=== PATIENT | female | born 1955 | race Caucasian/White ===

== ENCOUNTER 2019-03-04 18:32 | Inpatient (IN) | payer OTHER, MEDICAID ==
[2019-03-04 19:13] LABS: ADD UMIC NO; UR ASCORBIC ACID NEGATIVE (NEGATIVE); UR BILIRUBIN (Dip) NEGATIVE (NEGATIVE); UR BLOOD (Dip) NEGATIVE (NEGATIVE); UR CLARITY CLEAR (CLEAR); UR COLOR STRAW (YELLOW); UR GLUCOSE (Dip) NEGATIVE (NEGATIVE); UR KETONES (Dip) NEGATIVE (NEGATIVE); UR LEUKOCYTE ESTERASE (Dip) NEGATIVE Leu/ul (NEGATIVE); UR NITRITE (Dip) NEGATIVE (NEGATIVE); UR SPECIFIC GRAVITY (Dip) 1.015 (1.003-1.030); UR TOTAL PROTEIN (Dip) NEGATIVE (NEGATIVE); UR UROBILINOGEN (Dip) NEGATIVE (NEGATIVE)
[2019-03-04 19:16] LABS: WHITE BLOOD COUNT 10.3 10^3/ul (4.8-10.8)
[2019-03-04 19:16] LABS: ADD MAN DIFF? NO; BASOPHIL # 0.1 10^3/ul (0.0-0.1); BASOPHILS % 0.6 % (0.0-2.0); EOSINOPHILS # 0.1 10^3/ul (0.0-0.5); EOSINOPHILS % 1.1 % (0.0-7.0); HEMATOCRIT 43.2 % (37.0-47.0); HEMOGLOBIN 14.2 g/dl (12.0-16.0); LYMPHOCYTES # 1.8 10^3/ul (0.8-2.9); LYMPHOCYTES % 17.8 % (15.0-51.0); MEAN CORPUSCULAR HEMOGLOBIN 28.4 pg (29.0-33.0); MEAN CORPUSCULAR HGB CONC 32.9 g/dl (32.0-37.0); MEAN CORPUSCULAR VOLUME 86.4 fl (82.0-101.0); MEAN PLATELET VOLUME 8.7 fl (7.4-10.4); MONOCYTE # 0.9 10^3/ul (0.3-0.9); MONOCYTES % 8.6 % (0.0-11.0); NEUTROPHIL # 7.4 10^3/ul (1.6-7.5); NEUTROPHILS % 71.7 % (39.0-77.0); PLATELET COUNT 426 10^3/UL (140-415); RED CELL DISTRIBUTION WIDTH 18.2 % (11.5-14.5)
[2019-03-04] MEDS: LORAZEPAM 1 MG TAB PO (19:18)
[2019-03-04] MEDS: SOD CHLORIDE 0.9% 1,000 ML IV (19:19)
[2019-03-04 19:32] LABS: ALANINE AMINOTRANSFERASE 18 IU/L (13-69); ALBUMIN 4.3 g/dl (3.3-4.9); ALBUMIN/GLOBULIN RATIO 1.07; ALKALINE PHOSPHATASE 89 IU/L (42-121); ANION GAP 12 (5-13); ASPARTATE AMINO TRANSFERASE 24 IU/L (15-46); BILIRUBIN,INDIRECT 0.3 mg/dl (0-1.1); BILIRUBIN,TOTAL 0.3 mg/dl (0.2-1.3); BLOOD UREA NITROGEN 26 mg/dl (7-20); CALCIUM 9.6 mg/dl (8.4-10.2); CARBON DIOXIDE 25 mmol/L (21-31); CHLORIDE 98 mmol/L (97-110); CREATININE 0.79 mg/dl (0.44-1.00); Estimated GFR > 60 mL/min (>60); GLUCOSE 62 mg/dl (70-220); LIPASE 35 U/L (23-300); POTASSIUM 3.9 mmol/L (3.5-5.1); SODIUM 135 mmol/L (135-144); TOTAL PROTEIN 8.3 g/dl (6.1-8.1)
[2019-03-04 19:44] LABS: TROPONIN-I < 0.012 ng/ml (0.000-0.120)
[2019-03-04] MEDS: FUROSEMIDE 40 MG INJ IV (20:28)
[2019-03-05] MEDS ORDERED: ONDANSETRON 4 MG INJ IV (03:00)
[2019-03-05] MEDS ORDERED: ALBUTEROL/IPRATROPIUM (NEB) 3 ML AMP HHN (03:00)
[2019-03-05] MEDS ORDERED: NACL 0.9% 3 ML SYG IV (03:00)
[2019-03-05] MEDS: SOD CHLORIDE 0.9% 1,000 ML IV ×2 (03:40→14:20)
[2019-03-05] MEDS: ACETAMINOPHEN 325 MG TAB PO (03:41)
[2019-03-05] MEDS: LORAZEPAM 2 MG INJ IV ×2 (03:54→22:24)
[2019-03-05 04:10] LABS: ADD MAN DIFF? NO
[2019-03-05 04:12] LABS: BASOPHIL # 0.1 10^3/ul (0.0-0.1); BASOPHILS % 0.5 % (0.0-2.0); EOSINOPHILS % 0.4 % (0.0-7.0); HEMATOCRIT 41.6 % (37.0-47.0); HEMOGLOBIN 13.8 g/dl (12.0-16.0); LYMPHOCYTES # 1.5 10^3/ul (0.8-2.9); LYMPHOCYTES % 13.1 % (15.0-51.0); MEAN CORPUSCULAR HEMOGLOBIN 28.9 pg (29.0-33.0); MEAN CORPUSCULAR HGB CONC 33.2 g/dl (32.0-37.0); MEAN PLATELET VOLUME 8.9 fl (7.4-10.4); MONOCYTE # 0.8 10^3/ul (0.3-0.9); NEUTROPHIL # 8.7 10^3/ul (1.6-7.5); NEUTROPHILS % 78.7 % (39.0-77.0); PLATELET COUNT 387 10^3/UL (140-415); RED BLOOD COUNT 4.78 10^6/ul (4.20-5.40); RED CELL DISTRIBUTION WIDTH 18.3 % (11.5-14.5)
[2019-03-05 04:24] LABS: HEMOGLOBIN A1C 7.8 % (0-5.9)
[2019-03-05 04:28] LABS: CREATINE KINASE 173 IU/L (23-200)
[2019-03-05 04:31] LABS: ALANINE AMINOTRANSFERASE 22 IU/L (13-69); ALBUMIN 3.7 g/dl (3.3-4.9); ALBUMIN/GLOBULIN RATIO 1.19; ALKALINE PHOSPHATASE 70 IU/L (42-121); ANION GAP 13 (5-13); ASPARTATE AMINO TRANSFERASE 24 IU/L (15-46); BILIRUBIN,INDIRECT 0.4 mg/dl (0-1.1); BILIRUBIN,TOTAL 0.4 mg/dl (0.2-1.3); BLOOD UREA NITROGEN 23 mg/dl (7-20); CALCIUM 9.2 mg/dl (8.4-10.2); CARBON DIOXIDE 27 mmol/L (21-31); CHLORIDE 100 mmol/L (97-110); CHOLESTEROL 112 mg/dl (100-200); CREATININE 0.64 mg/dl (0.44-1.00); Estimated GFR > 60 mL/min (>60); GLUCOSE 102 mg/dl (70-220); HDL CHOLESTEROL 54 mg/dl (35-98); LDL CHOLESTEROL,CALCULATED 45 mg/dl; MAGNESIUM 1.9 mg/dl (1.7-2.5); POTASSIUM 4.3 mmol/L (3.5-5.1); SODIUM 140 mmol/L (135-144); TOTAL PROTEIN 6.8 g/dl (6.1-8.1); TRIGLYCERIDES 67 mg/dl (0-149)
[2019-03-05] MEDS: LEVOFLOXACIN 500MG/D5W (PMX) 100 ML IVPB (05:01)
[2019-03-05] MEDS: HYDROmorphONE 1 MG/ML SYG IV (05:02)
[2019-03-05 05:09] LABS: CK INDEX 1.1; CK-MB 1.97 ng/ml (0.0-2.4); TROPONIN-I < 0.012 ng/ml (0.000-0.120)
[2019-03-05] MEDS: LISINOPRIL 20 MG TAB PO (09:05)
[2019-03-05] MEDS: HEPARIN 5,000 UNIT/1 ML VIAL SC ×2 (09:12→20:10)
[2019-03-05] MEDS: ASPIRIN 81 MG TAB PO (09:12)
[2019-03-05] MEDS: HYDROCODONE/APAP (5/325) TAB PO ×2 (10:48→20:04)
[2019-03-05] MEDS ORDERED: HYDROCODONE/APAP (5/325) TAB PO (11:00)
[2019-03-05 11:09] LABS: CREATINE KINASE 151 IU/L (23-200)
[2019-03-05 11:23] LABS: CK INDEX 1.1; CK-MB 1.65 ng/ml (0.0-2.4); TROPONIN-I < 0.012 ng/ml (0.000-0.120)
[2019-03-05] MEDS: morphine 2 MG INJ IV ×2 (12:02→15:58)
[2019-03-05 13:51] LABS: THYROID STIMULATING HORMONE 0.458 MIU/L (0.465-4.680)
[2019-03-05] MEDS: GABAPENTIN 100 MG CAP PO (22:39)
[2019-03-06] MEDS: morphine 2 MG INJ IV ×6 (00:53→21:37)
[2019-03-06] MEDS: HYDROCODONE/APAP (5/325) TAB PO (03:43)
[2019-03-06] MEDS: SOD CHLORIDE 0.9% 1,000 ML IV (03:51)
[2019-03-06] MEDS: LEVOFLOXACIN 500MG/D5W (PMX) 100 ML IVPB (05:40)
[2019-03-06 06:14] LABS: ADD MAN DIFF? NO; BASOPHIL # 0.1 10^3/ul (0.0-0.1); BASOPHILS % 0.6 % (0.0-2.0); EOSINOPHILS # 0.3 10^3/ul (0.0-0.5); EOSINOPHILS % 3.1 % (0.0-7.0); HEMATOCRIT 39.3 % (37.0-47.0); HEMOGLOBIN 12.7 g/dl (12.0-16.0); LYMPHOCYTES # 1.5 10^3/ul (0.8-2.9); LYMPHOCYTES % 18.6 % (15.0-51.0); MEAN CORPUSCULAR HEMOGLOBIN 28.9 pg (29.0-33.0); MEAN CORPUSCULAR HGB CONC 32.3 g/dl (32.0-37.0); MEAN CORPUSCULAR VOLUME 89.5 fl (82.0-101.0); MEAN PLATELET VOLUME 8.8 fl (7.4-10.4); MONOCYTE # 0.9 10^3/ul (0.3-0.9); MONOCYTES % 11.3 % (0.0-11.0); NEUTROPHIL # 5.4 10^3/ul (1.6-7.5); PLATELET COUNT 385 10^3/UL (140-415); RED BLOOD COUNT 4.39 10^6/ul (4.20-5.40); RED CELL DISTRIBUTION WIDTH 18.6 % (11.5-14.5)
[2019-03-06 06:14] LABS: WHITE BLOOD COUNT 8.2 10^3/ul (4.8-10.8)
[2019-03-06 06:29] LABS: ANION GAP 9 (5-13); BLOOD UREA NITROGEN 13 mg/dl (7-20); CALCIUM 8.8 mg/dl (8.4-10.2); CARBON DIOXIDE 28 mmol/L (21-31); CHLORIDE 101 mmol/L (97-110); CREATININE 0.51 mg/dl (0.44-1.00); Estimated GFR > 60 mL/min (>60); GLUCOSE 156 mg/dl (70-220); PHOSPHORUS 3.8 mg/dl (2.5-4.9); POTASSIUM 4.3 mmol/L (3.5-5.1); SODIUM 138 mmol/L (135-144)
[2019-03-06] MEDS: ASPIRIN 81 MG TAB PO (09:07)
[2019-03-06] MEDS: LISINOPRIL 20 MG TAB PO (09:07)
[2019-03-06] MEDS: HEPARIN 5,000 UNIT/1 ML VIAL SC ×2 (09:14→20:52)
[2019-03-06 12:18] LABS: FREE T4 (FREE THYROXINE) 1.25 ng/dl (0.78-2.44)
[2019-03-06 12:30] LABS: B-TYPE NATRIURETIC PEPTIDE 67 PG/ML (0-125)
[2019-03-06] MEDS ORDERED: DEXTROSE 50% 50 ML SYRINGE IV ×2 (12:30)
[2019-03-06] MEDS ORDERED: GLUCOSE GEL 15 GRAM TUBE PO ×2 (12:30)
[2019-03-06] MEDS ORDERED: GLUCAGON 1 MG INJ IM (12:30)
[2019-03-06] MEDS ORDERED: GLUCOSE GEL 15 GRAM TUBE BUCCAL (12:30)
[2019-03-06] MEDS: FUROSEMIDE 20 MG INJ IV (13:10)
[2019-03-06] MEDS: GABAPENTIN 300 MG CAP PO ×2 (13:10→20:52)
[2019-03-06] MEDS: NYSTATIN 30 GM POWDER BTL TOP ×2 (13:11→20:52)
[2019-03-06 13:22] LABS: THYROID STIMULATING HORMONE 0.746 MIU/L (0.465-4.680)
[2019-03-06] MEDS: ACETAMINOPHEN 325 MG TAB PO (16:33)
[2019-03-06] MEDS: INSULIN ASPART [NOVOLOG] 3 ML PEN SC ×3 (17:16→20:41)
[2019-03-06] MEDS: metFORMIN 500 MG TAB PO (17:17)
[2019-03-06] MEDS: INSULIN GLARGINE [LANTus] (100 UNITS/ML) SYG SC (20:51)
[2019-03-07] MEDS: HYDROCODONE/APAP (5/325) TAB PO ×3 (00:25→14:00)
[2019-03-07] MEDS: DICLOFENAC SODIUM 1% GEL 100 GM TUBE TP ×2 (01:01→08:15)
[2019-03-07] MEDS: morphine 2 MG INJ IV ×3 (01:46→09:46)
[2019-03-07] MEDS: DOCUSATE SODIUM 100 MG CAP PO (08:14)
[2019-03-07] MEDS: ASPIRIN 81 MG TAB PO (08:14)
[2019-03-07] MEDS: GABAPENTIN 300 MG CAP PO ×2 (08:14→12:29)
[2019-03-07] MEDS: metFORMIN 500 MG TAB PO (08:15)
[2019-03-07] MEDS: LISINOPRIL 20 MG TAB PO (08:15)
[2019-03-07] MEDS: FUROSEMIDE 20 MG INJ IV (08:16)
[2019-03-07] MEDS: AMLODIPINE 5 MG TAB PO (08:16)
[2019-03-07] MEDS: INSULIN ASPART [NOVOLOG] 3 ML PEN SC ×4 (08:17→12:26)
[2019-03-07] MEDS: HEPARIN 5,000 UNIT/1 ML VIAL SC (08:19)
[2019-03-07] MEDS: POLYETHYLENE GLYCOL 17 GM PACKET PO (08:20)
[2019-03-07 08:21] LABS: ADD MAN DIFF? NO
[2019-03-07 08:28] LABS: BASOPHILS % 0.5 % (0.0-2.0); EOSINOPHILS # 0.2 10^3/ul (0.0-0.5); EOSINOPHILS % 2.8 % (0.0-7.0); HEMATOCRIT 39.5 % (37.0-47.0); HEMOGLOBIN 12.5 g/dl (12.0-16.0); LYMPHOCYTES # 1.6 10^3/ul (0.8-2.9); LYMPHOCYTES % 19.4 % (15.0-51.0); MEAN CORPUSCULAR HEMOGLOBIN 28.4 pg (29.0-33.0); MEAN CORPUSCULAR HGB CONC 31.6 g/dl (32.0-37.0); MEAN CORPUSCULAR VOLUME 89.8 fl (82.0-101.0); MEAN PLATELET VOLUME 8.8 fl (7.4-10.4); MONOCYTE # 0.9 10^3/ul (0.3-0.9); MONOCYTES % 10.7 % (0.0-11.0); NEUTROPHIL # 5.5 10^3/ul (1.6-7.5); NEUTROPHILS % 66.4 % (39.0-77.0); PLATELET COUNT 357 10^3/UL (140-415); RED CELL DISTRIBUTION WIDTH 18.6 % (11.5-14.5)
[2019-03-07 08:28] LABS: WHITE BLOOD COUNT 8.3 10^3/ul (4.8-10.8)
[2019-03-07 08:54] LABS: PHOSPHORUS 4.6 mg/dl (2.5-4.9)
[2019-03-07 08:54] LABS: MAGNESIUM 1.9 mg/dl (1.7-2.5)
[2019-03-07 08:57] LABS: ANION GAP 8 (5-13); BLOOD UREA NITROGEN 15 mg/dl (7-20); CARBON DIOXIDE 30 mmol/L (21-31); CHLORIDE 97 mmol/L (97-110); CREATININE 0.44 mg/dl (0.44-1.00); Estimated GFR > 60 mL/min (>60); GLUCOSE 146 mg/dl (70-220); POTASSIUM 4.7 mmol/L (3.5-5.1); SODIUM 135 mmol/L (135-144)
[2019-03-07] MEDS: NYSTATIN 30 GM POWDER BTL TOP (09:50)
== END 2019-03-07 15:17 | disposition home health service (06) | DRG 92 ==
LOC: 6WM 20:23 → E/R 18:32 → PP2 03-06 16:01
DX: R47.81 Slurred speech (principal); I50.30 Unspecified diastolic (congestive) heart failure; Z68.42 Body mass index [BMI] 45.0-49.9, adult; I11.0 Hypertensive heart disease with heart failure; F20.9 Schizophrenia, unspecified; E66.01 Morbid (severe) obesity due to excess calories; E11.9 Type 2 diabetes mellitus without complications; F17.210 Nicotine dependence, cigarettes, uncomplicated; R29.6 Repeated falls; T50.905A Adverse effect of unspecified drugs, medicaments and biological substances, initial encounter
CPT/HCPCS: 36415; 70450; 71045; 80048; 80053; 80061; 81003; 82550; 82553; 82962; 83036; 83690; 83735; 83880; 84100; 84439; 84443; 84484; 85025; 87086; 92610; 93005; 93306; 93880; 97116; 97162; 97530; 99285-25